=== PATIENT | male | born 1965 | race American Indian/Alaskan Native ===

== ENCOUNTER 2017-05-27 11:30 | Emergency (ER) | payer OTHER ==
[2017-05-27] MEDS ORDERED: KEPPRA 1,000 MG/NS 0.75% 100ML 1,000 MG/100 ML BAG IV ONE (12:26)
--- NOTE | 2017-05-27 12:41 | Emergency Department Report ---
HPI - General Chief Complaint: Seizure Time Seen by Provider: 05/27/17 12:09 - HPI HPI: Room 6 The patient is a 52-year-old male presenting with a chief complaint of seizure. The patient states he was [place] [employer] on [place] began shaking patient states he then sat down and passed out. EMS states witnesses report the patient had a generalized tonic-clonic seizure but did not mention how long it lasted for. The patient was post ictal upon EMS arrival and slowly began to come to. Patient is currently answering questions and only complains of feeling weak all over and some soreness to the right side of his tongue which he believes he bit. The patient was admitted to the hospital June 2016 for similar episode but there was no seizure witnessed at that time. The patient states he has not followed up with anyone since that recent admission Location: [see above] Duration: Unknown Quality: Generalized tonic-clonic Severity: Moderate Modifying factors: [see above] Context: [see above] Mode of transportation: [not driving] ED Past Medical Hx - Past Medical History Hx Hypertension: Yes Hx Diabetes: Yes Additional medical history: Gout - Surgical History Past Surgical History?: No - Family History Family history: no significant - Social History Smoking Status: Never Smoker Substance Use Type: None (denies illicit drug use) - Medications Home Medications: Home Medications Medication Instructions Recorded Confirmed Last Taken Type Aspirin [Aspirin TAB] 81 mg PO QDAY #30 tablet 06/24/16 Unknown Rx Hydrochlorothiazide [HCTZ] 25 mg PO QDAY #30 tablet 06/24/16 Unknown Rx Insulin Glargine [Lantus VIAL] 20 units SUB-Q QHS #1000 units 06/24/16 Unknown Rx Lisinopril [Zestril TAB] 40 mg PO QDAY #30 tablet 06/24/16 Unknown Rx Simvastatin [Zocor TAB] 40 mg PO QHS #30 tablet 06/24/16 Unknown Rx Syring-Needl,Disp,Insul,0.3 ml 1 each [facility] DAILY #30 disp.syrin 06/24/16 Unknown Rx [Insulin Syringe] amLODIPine [Norvasc] 10 mg PO QDAY #30 tablet 06/24/16 Unknown Rx glipiZIDE [Glucotrol] 10 mg PO BID #60 tab 06/24/16 Unknown Rx metFORMIN [Glucophage] 1,000 mg PO BID #60 tablet 06/24/16 Unknown Rx levETIRAcetam [Keppra] 500 mg PO BID #90 tablet 05/27/17 Unknown Rx ED Review of Systems ROS: Stated complaint: SEIZURE Other details as noted in HPI Comment: All other systems reviewed and negative Constitutional: weakness Eyes: denies: eye pain, eye discharge, vision change ENT: denies: ear pain, throat pain Respiratory: denies: cough, shortness of breath, wheezing Cardiovascular: denies: chest pain, palpitations Endocrine: no symptoms reported Gastrointestinal: denies: abdominal pain, nausea, diarrhea Genitourinary: denies: urgency, dysuria Musculoskeletal: denies: back pain, joint swelling, arthralgia Skin: denies: rash, lesions Neurological: other (seizure) Psychiatric: denies: anxiety, depression Hematological/Lymphatic: denies: easy bleeding, easy bruising Physical Exam - Physical Exam Vital Signs: Vital Signs 05/27/17 05/27/17 05/27/17 07:55 08:00 08:16 Temperature Pulse Rate 58 L 55 L 61 Respiratory 13 15 13 Rate Blood Pressure 133/57 133/57 118/61 O2 Sat by Pulse 99 97 97 Oximetry 05/27/17 05/27/17 05/27/17 08:30 08:46 09:00 Temperature Pulse Rate 55 L Respiratory 18 15 17 Rate Blood Pressure 133/66 133/66 133/66 O2 Sat by Pulse 97 73 L 99 Oximetry 05/27/17 05/27/17 05/27/17 09:16 09:30 09:46 Temperature Pulse Rate 62 59 L 63 Respiratory 14 14 16 Rate Blood Pressure 133/66 133/66 133/66 O2 Sat by Pulse 100 99 99 Oximetry 05/27/17 05/27/17 05/27/17 10:00 10:16 10:30 Temperature Pulse Rate 55 L 52 L 56 L Respiratory 13 12 19 Rate Blood Pressure 133/66 133/66 133/66 O2 Sat by Pulse 99 99 98 Oximetry 05/27/17 05/27/17 05/27/17 11:54 12:03 12:13 Temperature 97.6 F Pulse Rate 106 H 104 H 101 H Respiratory 20 21 21 Rate Blood Pressure 133/66 169/108 169/108 O2 Sat by Pulse 98 Oximetry Physical Exam: GENERAL: The patient is well-developed well-nourished male lying on stretcher not appearing to be in acute distress. [] HEENT: Normocephalic. Atraumatic. Extraocular motions are intact. Patient has moist mucous membranes. Small abrasion to the right edge of the tongue NECK: Supple. No meningitic signs are noted. Trachea midline CHEST/LUNGS: Clear to auscultation. There is no respiratory distress noted. HEART/CARDIOVASCULAR: Regular. There is no tachycardia. There is no gallop rub or murmur. ABDOMEN: Abdomen is soft, nontender. Patient has normal bowel sounds. There is no abdominal distention. SKIN: There is no rash. There is no edema. There is no diaphoresis. NEURO: The patient is awake, alert, and oriented. The patient is cooperative. The patient has no focal neurologic deficits. The patient has normal speech. Cranial nerves II through XII grossly intact, no drift MUSCULOSKELETAL: There is no evidence of acute injury. ED Course Vital Signs 05/27/17 05/27/17 05/27/17 07:55 08:00 08:16 Temperature Pulse Rate 58 L 55 L 61 Respiratory 13 15 13 Rate Blood Pressure 133/57 133/57 118/61 O2 Sat by Pulse 99 97 97 Oximetry 05/27/17 05/27/17 05/27/17 08:30 08:46 09:00 Temperature Pulse Rate 55 L Respiratory 18 15 17 Rate Blood Pressure 133/66 133/66 133/66 O2 Sat by Pulse 97 73 L 99 Oximetry 05/27/17 05/27/17 05/27/17 09:16 09:30 09:46 Temperature Pulse Rate 62 59 L 63 Respiratory 14 14 16 Rate Blood Pressure 133/66 133/66 133/66 O2 Sat by Pulse 100 99 99 Oximetry 05/27/17 05/27/17 05/27/17 10:00 10:16 10:30 Temperature Pulse Rate 55 L 52 L 56 L Respiratory 13 12 19 Rate Blood Pressure 133/66 133/66 133/66 O2 Sat by Pulse 99 99 98 Oximetry 05/27/17 05/27/17 05/27/17 11:54 12:03 12:13 Temperature 97.6 F Pulse Rate 106 H 104 H 101 H Respiratory 20 21 21 Rate Blood Pressure 133/66 169/108 169/108 O2 Sat by Pulse 98 Oximetry ED Medical Decision Making - Lab Data Result diagrams: 05/27/17 12:32 05/27/17 12:32 - EKG Data -: EKG Interpreted by Me EKG shows normal: sinus rhythm Rate: normal - EKG Data When compared to previous EKG there are: no significant change Interpretation: unchanged when compared t (06/21/2016) - Differential Diagnosis seizures Critical care attestation.: If time is entered above; I have spent that time in minutes in the direct care of this critically ill patient, excluding procedure time. ED Disposition Clinical Impression: Seizure, Hyperglycemia Disposition: DC-01 TO HOME OR SELFCARE Is pt being admited?: No Does the pt Need Aspirin: No Condition: Stable Instructions: Recurrent Seizures Adult (ED) Additional Instructions: He should not drive, operate heavy machinery or be around large bodies of water by yourself until you're cleared by a neurologist. Return to the emergency department immediately should you develop worsening symptoms, fever, inability to tolerate food or liquid or any other concerns. Prescriptions: levETIRAcetam [Keppra] 500 mg PO BID #90 tablet Referrals: [facility] [Outside] - 3-5 Days TIMOTHY VENCES MD [Staff Physician] - [facility] (Dr. Miranda is a neurologist. It is important that you do not drive or operate heavy machinery until you are cleared by a neurologist)
[2017-05-27] MEDS ORDERED: NACL 0.9% 1000 ML 1,000 ML IV ONE ×2 (12:52→16:04)
[2017-05-27 13:10] LABS: Basophils % (Auto) 0.7 % (0.0-1.8); Eosinophils % (Auto) 0.8 % (0.0-4.3); Hematocrit 34.6 % (35.5-45.6); Hemoglobin 10.7 gm/dl (11.8-15.2); Mean Corpuscular HGB Conc 31 % (32-34); Mean Corpuscular Volume 72 fl (84-94); Platelet Count 216 K/mm3 (140-440); Red Blood Count 4.79 M/mm3 (3.65-5.03); Red Cell Distribution Width 19.5 % (13.2-15.2)
[2017-05-27 13:12] LABS: Mean Corpuscular Hemoglobin 22 pg (28-32)
[2017-05-27 13:23] LABS: Calcium 9.1 mg/dL (8.4-10.2); Chloride 92.9 mmol/L (98-107); Potassium 4.7 mmol/L (3.6-5.0)
--- NOTE | 2017-05-27 13:33 | Cat Scan Report ---
CT HEAD WITHOUT CONTRAST INDICATION: Seizure. COMPARISON: June 2016. FINDINGS: Noncontrast head CT demonstrates normal ventricles and sulci without acute or recent infarct, hemorrhage, mass effect or midline shift. Mild periventricular hypodensities. Minimal, benign bilateral basal ganglia calcifications. Bilateral basal ganglia lacunar infarcts measuring up to 9 mm on the right, axial image 25. No abnormal extra-axial fluid collections. Posterior fossa structures and basilar cisterns appear within normal limits. Symmetric eye globes. Clear paranasal sinuses and remaining mastoid air cells in this patient with partial left mastoidectomy. Middle ear ossicular deformities bilaterally not excluded with slight adjacent density noted on the right. Intact calvarium. Normal overlying scalp soft tissues. Small radiopaque dental material. CONCLUSION: No acute intracranial CT abnormality with few other findings, as described. Thank you for the opportunity to participate in this patient's care.
[2017-05-27] MEDS ORDERED: CATAPRES PO ONE (13:44)
[2017-05-27 14:22] LABS: Mucus,Urine FEW /HPF
[2017-05-27 14:36] LABS: Bilirubin,Urine NEG (Negative); Blood,Urine SM (Negative); Ketones,Urine NEG (Negative); Leukocyte Esterase,Urine NEG (Negative); Nitrite,Urine NEG (Negative); Urobilinogen,Urine < 2.0 mg/dL (<2.0); WBC,Urine < 1.0 /HPF (0.0-6.0)
[2017-05-27] MEDS ORDERED: NACL 0.9% 1000 ML 1,000 ML ONE (16:07)
[2017-05-27 16:35] VITALS: BP 166/90
== END 2017-05-27 18:10 | disposition home or self-care (01) ==
LOC: ED 11:30
DX: R56.9 Unspecified convulsions (principal); E11.65 Type 2 diabetes mellitus with hyperglycemia; I10 Essential (primary) hypertension; Z79.82 Long term (current) use of aspirin; Z79.4 Long term (current) use of insulin
CPT/HCPCS: 36415; 70450; 80048; 81001; 82805; 82962; 83735; 85025; 93005; 93010; 96361; 96365; 96375; 96376; 99285; J1953; J7030; J1815